=== PATIENT | female | born 1975 | race Caucasian/White ===

== ENCOUNTER 2018-09-12 10:50 | Emergency (ER) | payer MEDICAID, OTHER ==
[~2018-09-12] VITALS: Ht 154.9 cm; Wt 65.0 kg
[2018-09-12 10:52] VITALS: BP 110/69; PULSE 65; RESP 18; Ht 154.9 cm; Wt 65.0 kg
[2018-09-12] MEDS ORDERED: ACETAMINOPHEN 500 MG TAB PO STA (11:18)
--- NOTE | 2018-09-12 11:21 | ERD ---
ER Documentation Chief Complaint Chief Complaint FEVER ; SORE THROAT - LMP 06/03/18 HPI Patient is a 16 weeks female, age 42, presenting to the clinic for fever, chills, cough, and throat pain since yesterday. Patient rates her pain 8/10. Patient admits to taking OTC Tylenol with resolution. Patient denies all other review of system. Patient admits to seeing her [facility] 2 days ago and had labs done. ROS All systems reviewed and are negative except as per history of present illness. Medications Home Meds Active Scripts Guaifenesin (Guaifenesin) 100 Mg/5 Ml Liquid, 100 MG PO Q6H PRN for COUGH for 7 Days, ML Prov:BASIL WATTS PA-C 09/12/18 Allergies Allergies: Coded Allergies: No Known Allergy (Unverified , 09/12/18) PMhx/Soc Medical and Surgical Hx: pt denies Medical Hx, pt denies Surgical Hx History of Surgery: No Anesthesia Reaction: No Hx Neurological Disorder: No Hx Respiratory Disorders: No Hx Cardiac Disorders: No Hx Psychiatric Problems: No Hx Miscellaneous Medical Probl: No Hx Alcohol Use: No Hx Substance Use: No Hx Tobacco Use: No Smoking Status: Never smoker FmHx Family History: No diabetes, No coronary disease, No other Physical Exam Vitals Vital Signs Date Temp Pulse Resp B/P (MAP) Pulse Ox O2 O2 Flow FiO2 Time Delivery Rate 09/12/18 98.4 65 18 110/69 99 10:52 (83) Physical Exam Const: No acute distress. Mild lethargy. Head: Atraumatic Eyes: Normal Conjunctiva ENT: Normal External Ears, Nose. Mild oropharyngeal erythema. No tonsillar erythema, swelling, lesions, or mass noted. Neck: Full range of motion. No meningismus. Resp: Clear to auscultation bilaterally Cardio: Regular rate and rhythm, no murmurs Neur: Awake and alert Psych: Normal Mood and Affect Results 24 hrs Current Medications Medications Dose Sig/Edu Start Time Status Last (Trade) Ordered Route PRN Stop Time Admin Dose Reason Admin 1,000 mg ONCE STAT 09/12/18 DC 09/12/18 Acetaminophen PO 11:18 11:23 (Tylenol 09/12/18 11:19 Tab) Procedures/MDM Patient was seen and evaluated for cough and fever. Patient is most likely e xhibiting viral URI. No CXR required for today's visit due to unremarkable pulmonary exam. Low suspicion for pneumonia, sepsis, strep. Patient was given Tylenol in hospital. Patient is stable and ready for discharge. Patient was advised to f/y with [facility]. Patient was advised to avoid NSAID's for the duration of her . Departure Diagnosis: Primary Impression: URI (upper respiratory infection) URI type: unspecified viral URI Qualified Codes: J06.9 - Acute upper respiratory infection, unspecified Condition: Stable Patient Instructions: Preventing Common Respiratory Infections Referrals: [facility] Additional Instructions: Patient advised to return to the ED immediately for new or worsening symptoms. Patient advised to follow up with primary care provider in the next 24-48 hours. Patient verbalized understanding and agrees with treatment plan and course of action. If patient has no primary care they may follow up with [facility] [address] [place] [id number] or [facility] F/U with [facility]. [id number] [place] [address] or [facility] [address] [place] [address] BASIL WATTS PA-C Sep 12, 2018 11:21
[2018-09-12] MEDS ORDERED: GUAI-637 PO (11:23)
== END 2018-09-12 11:39 | disposition home or self-care (01) ==
LOC: FTE 10:50
DX: O99.512 Diseases of the respiratory system complicating pregnancy, second trimester (principal); J06.9 Acute upper respiratory infection, unspecified; Z3A.16 16 weeks gestation of pregnancy
CPT/HCPCS: 99282